=== PATIENT | male | born 1960 | race Caucasian/White ===

== ENCOUNTER 2018-10-04 11:55 | Day surgery (SDC) | payer MEDICARE, OTHER ==
[2018-10-04 12:07] VITALS: BP 142/66
[2018-10-04] MEDS ORDERED: POTA8TAB8 PO (12:34)
[2018-10-04] MEDS ORDERED: CARV-50 PO (12:36)
[2018-10-04] MEDS ORDERED: FURO40TA4 PO (12:36)
[2018-10-04] MEDS ORDERED: METF-436 PO (12:38)
[2018-10-04] MEDS ORDERED: AMLO5TAB PO (12:41)
[2018-10-04] MEDS ORDERED: PANT-47 PO (12:41)
[2018-10-04] MEDS ORDERED: SAXA5TAB PO (12:44)
[2018-10-04] MEDS ORDERED: AMYL1CAP57 PO (12:45)
[2018-10-04] MEDS ORDERED: AMYL1CAP56 PO (12:45)
[2018-10-04] MEDS ORDERED: LOSA25TA96 PO (12:46)
[2018-10-04] MEDS ORDERED: GLIM4TAB79 PO (12:49)
[2018-10-04] MEDS ORDERED: MV-M1TAB19 PO (12:50)
[2018-10-04] MEDS ORDERED: IRON18TA PO (12:51)
[2018-10-04] MEDS ORDERED: MELA3TAB PO (12:52)
[2018-10-04] MEDS ORDERED: GUAI-44 PO (12:53)
[2018-10-04] MEDS ORDERED: WARF-55 PO (12:57)
[2018-10-04] MEDS ORDERED: WARF6TAB49 PO (12:57)
[2018-10-04] MEDS ORDERED: MIDAZolam 5mg/5ml vial ONE (13:03)
[2018-10-04] MEDS ORDERED: fentaNYL/PF 50MCG/1 ML 2ML syringe ONE (13:03)
[2018-10-04] MEDS ORDERED: LIDOcaine Viscous 15ml cup ONE (13:04)
[2018-10-04 14:29] VITALS: BP 128/64
[2018-10-04 14:39] VITALS: BP 154/90
[2018-10-04 14:49] VITALS: BP 165/65
== END 2018-10-04 15:00 | disposition home or self-care (01) ==
LOC: GI LAB 11:55
PROVIDERS: ATTEND Internal Medicine Gastroenterology
DX: K31.7 Polyp of stomach and duodenum (principal)
CPT/HCPCS: 43251; 99152; C1773; J2250; J3010; J7030; 88305; 99153; A4620; J7040

== ENCOUNTER 2018-11-02 14:40 | Emergency (ER) | payer MEDICARE, OTHER ==
[~2018-11-02] VITALS: Ht 182.9 cm; Wt 145.0 kg
[~2018-11-02 14:40] MED LIST: AMLO5TAB PO; AMYL1CAP56 PO; AMYL1CAP57 PO; CARV-50 PO; FURO40TA4 PO; GLIM4TAB4 PO; GUAI-44 PO; IRON18TA PO; LOSA25TA96 PO; MELA3TAB64 PO; METF-436 PO; MV-M1TAB19 PO; PANT-47 PO; POTA8TAB8 PO; SAXA5TAB PO; WARF-55 PO; WARF6TAB49 PO
[2018-11-02 16:07] LABS: BASOPHILS # (AUTO) 0.1 X10'3 (0-0.2); BASOPHILS % (AUTO) 1.2 % (0-1); EOSINOPHILS # (AUTO) 1.1 X10'3 (0-0.9); EOSINOPHILS % (AUTO) 9.3 % (0-6); HEMATOCRIT 53.4 % (42.0-52.0); HEMOGLOBIN 17.7 g/dl (14.0-17.9); MEAN CORPUSCULAR HEMOGLOBIN 28.6 PG (27.0-31.0); MEAN CORPUSCULAR HGB CONC 33.1 g/dL (33.0-36.5); MEAN CORPUSCULAR VOLUME 86.1 FL (78-98); MEAN PLATELET VOLUME 10.3 FL (7.4-10.4); MONOCYTES # (AUTO) 1.2 X10'3 (0-0.9); MONOCYTES % (AUTO) 9.9 % (2-12); NEUTROPHILS # (AUTO) 7.3 X10'3 (1.8-7.7); NEUTROPHILS % (AUTO) 62.6 % (42-75); PLATELET COUNT 169 X10'3 (140-440); RED CELL DISTRIBUTION WIDTH 15.6 % (11.5-14.5); WHITE BLOOD COUNT 11.7 X10'3 (4.5-11.0)
[2018-11-02 16:22] LABS: ALANINE AMINOTRANSFERASE 44 U/L (12-78); ALBUMIN 3.6 G/DL (3.4-5.0); ALKALINE PHOSPHATASE 63 IU/L (46-116); ANION GAP 6 (8-16); ASPARTATE AMINO TRANSFERASE 27 U/L (10-37); BILIRUBIN,TOTAL 0.5 MG/DL (0.1-1.0); BLOOD UREA NITROGEN 12 MG/DL (7-18); BUN/CREATININE RATIO 10.4 (5.4-32.0); CALCIUM 8.7 MG/DL (8.5-10.1); CHLORIDE 106 MMOL/L (99-107); CREATININE 1.15 MG/DL (0.60-1.10); GLUCOSE 120 MG/DL (70-104); POTASSIUM 4.1 MMOL/L (3.5-5.1); SODIUM 140 MMOL/L (135-145); TOTAL CARBON DIOXIDE 28.2 MMOL/L (24-32); TOTAL PROTEIN 7.3 G/DL (6.4-8.2); eGFR 65 ML/MIN
[2018-11-02 16:29] LABS: MAGNESIUM 1.8 MG/DL (1.5-2.4)
[2018-11-02 17:59] VITALS: BP 136/77
== END 2018-11-02 18:02 | disposition home or self-care (01) ==
LOC: ER 14:41
DX: I73.9 Peripheral vascular disease, unspecified (principal); R06.02 Shortness of breath; E11.42 Type 2 diabetes mellitus with diabetic polyneuropathy; I50.9 Heart failure, unspecified; F12.90 Cannabis use, unspecified, uncomplicated; Z98.61 Coronary angioplasty status; Z95.0 Presence of cardiac pacemaker; Z87.891 Personal history of nicotine dependence; Z79.84 Long term (current) use of oral hypoglycemic drugs; Z79.01 Long term (current) use of anticoagulants; Z79.899 Other long term (current) drug therapy
CPT/HCPCS: 36415; 71045; 80053; 83735; 83880; 84484; 85025; 93005; 93925; 99284

== ENCOUNTER 2020-08-16 09:13 | Day surgery (SDC) | payer MEDICARE, OTHER ==
[~2020-08-16] VITALS: Ht 180.3 cm; Wt 144.1 kg
[~2020-08-16 09:13] MED LIST changes: -GLIM4TAB4 PO; +GLIM4TAB7 PO; +MELA3TAB39 PO; -MELA3TAB64 PO
[2020-08-16 09:30] VITALS: BP 158/82
[2020-08-16] MEDS ORDERED: fentaNYL/PF 50MCG/1 ML 2ML syringe ONE (09:42)
[2020-08-16] MEDS ORDERED: MIDAZolam 1 MG/ML 5ML VIAL ONE (09:43)
[2020-08-16] MEDS ORDERED: LIDOcaine Viscous 15ml cup ONE (09:43)
[2020-08-16] MEDS ORDERED: DULA3PEN (10:01)
[2020-08-16] MEDS ORDERED: ERGO400C PO (10:01)
[2020-08-16] MEDS ORDERED: CLOP75TA33 PO (10:02)
[2020-08-16] MEDS ORDERED: LOSA25TA41 PO (10:03)
[2020-08-16] MEDS ORDERED: CARV25TA2 PO (10:03)
[2020-08-16] MEDS ORDERED: ATOR20TA66 PO (10:04)
[2020-08-16 11:15] VITALS: BP 154/93
[2020-08-16 11:25] VITALS: BP 148/88
[2020-08-16 11:35] VITALS: BP 144/84
== END 2020-08-16 12:10 | disposition home or self-care (01) ==
LOC: GI LAB 09:13
PROVIDERS: ATTEND Internal Medicine Gastroenterology
DX: K92.1 Melena (principal); R93.3 Abnormal findings on diagnostic imaging of other parts of digestive tract; R10.9 Unspecified abdominal pain; K63.89 Other specified diseases of intestine; K56.2 Volvulus; K57.30 Diverticulosis of large intestine without perforation or abscess without bleeding; K64.8 Other hemorrhoids; D12.3 Benign neoplasm of transverse colon; D12.4 Benign neoplasm of descending colon; K29.50 Unspecified chronic gastritis without bleeding; K31.7 Polyp of stomach and duodenum; I10 Essential (primary) hypertension; E11.9 Type 2 diabetes mellitus without complications; E66.9 Obesity, unspecified; Z68.41 Body mass index [BMI] 40.0-44.9, adult; Z87.891 Personal history of nicotine dependence
CPT/HCPCS: 43239; 43251; 45380; 45385; 99153; C1773; G0500; J2250; J3010; J7040; 88305; 88342; 99152; A4620

== ENCOUNTER 2020-09-07 07:49 | Emergency (ER) | payer MEDICARE, OTHER ==
[~2020-09-07] VITALS: Ht 180.3 cm; Wt 140.0 kg
[~2020-09-07 07:49] MED LIST changes: -AMLO5TAB PO; -AMYL1CAP56 PO; -AMYL1CAP57 PO; +ATOR20TA66 PO; -CARV-50 PO; +CARV25TA2 PO; +CLOP75TA33 PO; +DULA3PEN; +ERGO400C PO; -GLIM4TAB7 PO; -GUAI-44 PO; -IRON18TA PO; +LOSA25TA41 PO; -MELA3TAB39 PO; -METF-436 PO; -MV-M1TAB19 PO; -POTA8TAB8 PO
[2020-09-07 07:53] VITALS: BP 156/96
== END 2020-09-07 09:51 | disposition home or self-care (01) ==
LOC: ER 07:50
DX: I83.892 Varicose veins of left lower extremity with other complications (principal); I50.9 Heart failure, unspecified; E11.9 Type 2 diabetes mellitus without complications; F12.10 Cannabis abuse, uncomplicated; Z79.899 Other long term (current) drug therapy
CPT/HCPCS: 99282

== ENCOUNTER 2021-08-19 11:52 | Emergency (ER) | payer MEDICARE, OTHER ==
[~2021-08-19] VITALS: Ht 180.3 cm; Wt 140.0 kg
[2021-08-19 12:25] LABS: BASOPHILS # (AUTO) 0.1 X10'3 (0-0.2); EOSINOPHILS # (AUTO) 1.1 X10'3 (0-0.9); EOSINOPHILS % (AUTO) 11.5 % (0-6); HEMATOCRIT 44.9 % (42.0-52.0); HEMOGLOBIN 14.7 g/dl (14.0-17.9); LYMPHOCYTES # (AUTO) 2.1 X10'3 (1.1-4.8); LYMPHOCYTES % (AUTO) 21.1 % (21-51); MEAN CORPUSCULAR HEMOGLOBIN 27.1 PG (27.0-31.0); MEAN CORPUSCULAR HGB CONC 32.8 g/dL (33.0-36.5); MEAN CORPUSCULAR VOLUME 82.7 FL (78-98); MEAN PLATELET VOLUME 8.5 FL (7.4-10.4); MONOCYTES # (AUTO) 0.7 X10'3 (0-0.9); MONOCYTES % (AUTO) 7.5 % (2-12); NEUTROPHILS # (AUTO) 5.9 X10'3 (1.8-7.7); NEUTROPHILS % (AUTO) 58.9 % (42-75); PLATELET COUNT 202 X10'3 (140-440); RED BLOOD COUNT 5.42 X10'6 (4.70-6.10); RED CELL DISTRIBUTION WIDTH 14.7 % (11.5-14.5); WHITE BLOOD COUNT 9.9 X10'3 (4.5-11.0)
[2021-08-19 12:39] LABS: ALANINE AMINOTRANSFERASE 35 U/L (12-78); ALBUMIN 3.5 G/DL (3.4-5.0); ALBUMIN/GLOBULIN RATIO 0.9 (1.1-1.5); ALKALINE PHOSPHATASE 79 IU/L (46-116); ANION GAP 6 (8-16); ASPARTATE AMINO TRANSFERASE 21 U/L (10-37); BILIRUBIN,TOTAL 0.7 MG/DL (0.1-1.0); BLOOD UREA NITROGEN 12 MG/DL (7-18); BUN/CREATININE RATIO 10.7 (5.4-32.0); CALCIUM 8.7 MG/DL (8.5-10.1); CHLORIDE 104 MMOL/L (99-107); CREATININE 1.12 MG/DL (0.60-1.10); GLUCOSE 176 MG/DL (70-104); POTASSIUM 4.1 MMOL/L (3.5-5.1); SODIUM 138 MMOL/L (135-145); TOTAL PROTEIN 7.2 G/DL (6.4-8.2); eGFR 67 ML/MIN
[2021-08-19 12:47] LABS: LIPASE 65 U/L (73-393)
[2021-08-19 13:37] LABS: D-DIMER < 0.19 MG/L FEU (0-0.50)
[2021-08-19] MEDS ORDERED: furosemide 20MG tablet PO ONE (14:30)
[2021-08-19] MEDS ORDERED: cloNIDine 0.1 mg tablet PO ONE (14:30)
[2021-08-19 15:05] VITALS: BP 151/91
== END 2021-08-19 15:17 | disposition home or self-care (01) ==
LOC: ER 11:53
DX: I10 Essential (primary) hypertension (principal); R06.02 Shortness of breath; R07.89 Other chest pain; R22.42 Localized swelling, mass and lump, left lower limb; I25.2 Old myocardial infarction; I48.91 Unspecified atrial fibrillation; E11.43 Type 2 diabetes mellitus with diabetic autonomic (poly)neuropathy; I50.9 Heart failure, unspecified; F12.90 Cannabis use, unspecified, uncomplicated; Z95.5 Presence of coronary angioplasty implant and graft; Z95.0 Presence of cardiac pacemaker; Z88.8 Allergy status to other drugs, medicaments and biological substances; Z79.899 Other long term (current) drug therapy; Z85.51 Personal history of malignant neoplasm of bladder; Z79.01 Long term (current) use of anticoagulants
CPT/HCPCS: 36415; 71045; 80053; 83690; 83880; 84484; 85025; 85379; 85610; 93005; 93971; 99285

== ENCOUNTER 2021-12-06 06:29 | Day surgery (SDC) | payer MEDICARE, OTHER ==
[~2021-12-06] VITALS: Ht 180.3 cm; Wt 133.5 kg
[2021-12-06] VITALS (10 sets, daily range): BP systolic 101–135; BP diastolic 54–72
[2021-12-06] MEDS ORDERED: ceFAZolin inj. 3,000 MG in normal saline 100ml IV soln 100 ML IV ONE (06:50)
[2021-12-06] MEDS ORDERED: vancomycin 1,500 MG in NS 300ml IV soln IV ONE (06:51)
[2021-12-06 07:25] LABS: ALBUMIN 3.8 G/DL (3.4-5.0); ANION GAP 12 (8-16); BLOOD UREA NITROGEN 22 MG/DL (7-18); BUN/CREATININE RATIO 19.3 (5.4-32.0); CALCIUM 9.2 MG/DL (8.5-10.1); CHLORIDE 104 MMOL/L (99-107); CREATININE 1.14 MG/DL (0.60-1.10); GLUCOSE 195 MG/DL (70-104); MAGNESIUM 1.9 MG/DL (1.5-2.4); SODIUM 140 MMOL/L (135-145); TOTAL CARBON DIOXIDE 24.2 MMOL/L (24-32); eGFR 65 ML/MIN
[2021-12-06 07:27] LABS: BASOPHILS # (AUTO) 0.1 X10'3 (0-0.2); BASOPHILS % (AUTO) 0.9 % (0-1); EOSINOPHILS # (AUTO) 1.3 X10'3 (0-0.9); HEMATOCRIT 45.3 % (42.0-52.0); HEMOGLOBIN 15.3 g/dl (14.0-17.9); LYMPHOCYTES # (AUTO) 2.3 X10'3 (1.1-4.8); LYMPHOCYTES % (AUTO) 19.3 % (21-51); MEAN CORPUSCULAR HEMOGLOBIN 28.6 PG (27.0-31.0); MEAN CORPUSCULAR HGB CONC 33.7 g/dL (33.0-36.5); MEAN CORPUSCULAR VOLUME 84.9 FL (78-98); MEAN PLATELET VOLUME 9.3 FL (7.4-10.4); MONOCYTES # (AUTO) 1.1 X10'3 (0-0.9); MONOCYTES % (AUTO) 8.9 % (2-12); NEUTROPHILS # (AUTO) 7.3 X10'3 (1.8-7.7); NEUTROPHILS % (AUTO) 59.9 % (42-75); PLATELET COUNT 186 X10'3 (140-440); RED BLOOD COUNT 5.34 X10'6 (4.70-6.10); RED CELL DISTRIBUTION WIDTH 15.2 % (11.5-14.5); WHITE BLOOD COUNT 12.1 X10'3 (4.5-11.0)
[2021-12-06] MEDS ORDERED: CHOL500050 PO (07:47)
[2021-12-06] MEDS ORDERED: FURO-150 PO (07:49)
[2021-12-06] MEDS ORDERED: CBD GUMMY PO (07:52)
[2021-12-06] MEDS ORDERED: POTA8CAP20 PO (07:53)
[2021-12-06] MEDS ORDERED: INSU100I29 SQ (07:53)
[2021-12-06] MEDS ORDERED: SPIR25TA5 PO (07:55)
[2021-12-06] MEDS ORDERED: SACU1TAB7 PO (07:55)
[2021-12-06] MEDS ORDERED: GLIM4TAB7 PO (07:59)
[2021-12-06] MEDS ORDERED: midazolam 1 mg/ML 2ml injection ONE ×6 (08:48→11:20)
[2021-12-06] MEDS ORDERED: fentaNYL/PF 50MCG/1 ML 2ML syringe ONE (08:48)
[2021-12-06] MEDS ORDERED: LIDOCAINE 2% w/EPI 1:100:000 30mL injection MDV**cath lab 1 only ONE (08:49)
[2021-12-06] MEDS ORDERED: iohexol 350MG/ML 100ml bottle IV ONE ×3 (08:49→10:26)
[2021-12-06] MEDS ORDERED: vancomycin 1,000mg inj ONE (08:49)
[2021-12-06] MEDS ORDERED: normal saline 500ml IV soln 500 ML IV SCH (12:20)
[2021-12-07] MEDS ORDERED: CEPH-585 PO (13:01)
== END 2021-12-06 14:23 | disposition home or self-care (01) ==
LOC: SSTAY O 06:29
PROVIDERS: ATTEND Internal Medicine Cardiovascular Disease
DX: Z45.02 Encounter for adjustment and management of automatic implantable cardiac defibrillator (principal); I25.5 Ischemic cardiomyopathy; Z79.899 Other long term (current) drug therapy; I48.20 Chronic atrial fibrillation, unspecified; I25.2 Old myocardial infarction; I73.9 Peripheral vascular disease, unspecified; E78.5 Hyperlipidemia, unspecified; I10 Essential (primary) hypertension; E11.9 Type 2 diabetes mellitus without complications; G47.30 Sleep apnea, unspecified; Z98.890 Other specified postprocedural states; I50.22 Chronic systolic (congestive) heart failure; I42.0 Dilated cardiomyopathy; I11.0 Hypertensive heart disease with heart failure
CPT/HCPCS: 33225; 33230; 33233; 36415; 71045; 71046; 80048; 82948; 83735; 85025; 85610; 93005; 99152; 99153; C1751; C1769; C1882; C1894; J2250; J3010; J3370; J3490; J7030; J7040; Q9967; 33216; 33229; 33264; A4565; A4620; A6258

== ENCOUNTER 2021-12-07 09:42 | Emergency (ER) | payer MEDICARE, OTHER ==
[~2021-12-07] VITALS: Ht 180.3 cm; Wt 133.6 kg
[~2021-12-07 09:42] MED LIST changes: +CBD GUMMY PO; +CHOL500050 PO; -DULA3PEN; +FURO-150 PO; -FURO40TA4 PO; +GLIM4TAB7 PO; +INSU100I29 SQ; -LOSA25TA41 PO; -LOSA25TA96 PO; +POTA8CAP20 PO; +SACU1TAB7 PO; -SAXA5TAB PO; +SPIR25TA5 PO; -WARF-55 PO
[2021-12-07 11:19] VITALS: BP 105/64
[2021-12-07] MEDS ORDERED: CEPH-585 PO (13:01)
== END 2021-12-07 13:22 | disposition home or self-care (01) ==
LOC: ER 09:43
DX: I97.620 Postprocedural hemorrhage of a circulatory system organ or structure following other procedure (principal); E11.42 Type 2 diabetes mellitus with diabetic polyneuropathy; I50.9 Heart failure, unspecified; F12.90 Cannabis use, unspecified, uncomplicated; Z95.0 Presence of cardiac pacemaker; Z98.890 Other specified postprocedural states; Z88.8 Allergy status to other drugs, medicaments and biological substances; Z79.2 Long term (current) use of antibiotics; Z79.4 Long term (current) use of insulin; Z79.899 Other long term (current) drug therapy
CPT/HCPCS: 99283; A6258; A6449

== ENCOUNTER 2021-12-27 06:31 | Day surgery (SDC) | payer MEDICARE, OTHER ==
[~2021-12-27] VITALS: Ht 180.3 cm; Wt 136.7 kg
[2021-12-27] VITALS (7 sets, daily range): BP systolic 116–141; BP diastolic 75–89
[2021-12-27] MEDS ORDERED: vancomycin 1,500 MG in NS 300ml IV soln IV ONE (06:59)
[2021-12-27] MEDS ORDERED: ceFAZolin inj. 3,000 MG in normal saline 100ml IV soln 100 ML IV ONE (06:59)
[2021-12-27] MEDS ORDERED: WARF-55 PO (07:27)
[2021-12-27] MEDS ORDERED: fentaNYL/PF 50MCG/1 ML 2ML syringe ONE (08:45)
[2021-12-27] MEDS ORDERED: midazolam 1 mg/ML 2ml injection ONE ×3 (08:45→10:26)
[2021-12-27] MEDS ORDERED: LIDOCAINE 2% w/EPI 1:100:000 30mL injection MDV**cath lab 1 only ONE (08:46)
[2021-12-27] MEDS ORDERED: iohexol 350MG/ML 100ml bottle IV ONE ×2 (08:46→10:07)
[2021-12-27] MEDS ORDERED: vancomycin 1,000mg inj ONE (08:46)
[2021-12-27 09:05] LABS: BASOPHILS # (AUTO) 0.1 X10'3 (0-0.2); BASOPHILS % (AUTO) 1.1 % (0-1); EOSINOPHILS # (AUTO) 1.3 X10'3 (0-0.9); EOSINOPHILS % (AUTO) 11.5 % (0-6); HEMATOCRIT 45.6 % (42.0-52.0); HEMOGLOBIN 15.5 g/dl (14.0-17.9); LYMPHOCYTES # (AUTO) 2.4 X10'3 (1.1-4.8); LYMPHOCYTES % (AUTO) 21.8 % (21-51); MEAN CORPUSCULAR HEMOGLOBIN 29.5 PG (27.0-31.0); MEAN CORPUSCULAR HGB CONC 34.1 g/dL (33.0-36.5); MEAN CORPUSCULAR VOLUME 86.5 FL (78-98); MEAN PLATELET VOLUME 9.3 FL (7.4-10.4); MONOCYTES % (AUTO) 9.1 % (2-12); NEUTROPHILS # (AUTO) 6.2 X10'3 (1.8-7.7); NEUTROPHILS % (AUTO) 56.5 % (42-75); PLATELET COUNT 185 X10'3 (140-440); RED BLOOD COUNT 5.27 X10'6 (4.70-6.10)
[2021-12-27 09:53] LABS: ALBUMIN 3.6 G/DL (3.4-5.0); ANION GAP 10 (8-16); BLOOD UREA NITROGEN 16 MG/DL (7-18); BUN/CREATININE RATIO 14.2 (5.4-32.0); CALCIUM 9.1 MG/DL (8.5-10.1); CHLORIDE 103 MMOL/L (99-107); CREATININE 1.13 MG/DL (0.60-1.10); GLUCOSE 167 MG/DL (70-104); POTASSIUM 4.1 MMOL/L (3.5-5.1); SODIUM 139 MMOL/L (135-145); eGFR 66 ML/MIN
== END 2021-12-27 14:00 | disposition home or self-care (01) ==
LOC: SSTAY O 06:31
PROVIDERS: ATTEND Internal Medicine Cardiovascular Disease
DX: Z45.02 Encounter for adjustment and management of automatic implantable cardiac defibrillator (principal); I42.8 Other cardiomyopathies; I25.2 Old myocardial infarction; Z79.899 Other long term (current) drug therapy; Z98.890 Other specified postprocedural states
CPT/HCPCS: 33216; 36415; 80048; 82948; 83735; 85025; 85610; 93005; 93641; 99152; 99153; C1769; C1894; J2250; J3010; J3370; J3490; J7030; J7040; Q9967; A4620; A6258

== ENCOUNTER 2024-10-24 08:51 | Outpatient (CLI) | payer MEDICARE, OTHER ==
[~2024-10-24 08:51] MED LIST changes: -CHOL500050 PO; +WARF-55 PO
--- NOTE | 2024-10-24 10:40 | RADIOLOGY REPORT ---
EXAM: CT CT CERVICAL SPINE HISTORY: RADICULOPATHY, CERVICAL REGION, CHRONIC PAIN SYNDROME COMPARISON: None CTDIvol 25 mGy, DLP 632.5 mGy*cm. TECHNIQUE: Multiple axial CT images of the spine were obtained using bone algorithm. Axial and yeager l reformatting was done. Bone and soft tissue windows were reviewed. FINDINGS: No evidence of definite acute fracture, spinal dislocation, or significant appearing acute subluxatio n is seen. Partially imaged lipoma in the region of the right medial shoulder/ upper scapula. This measures appr oximately 7.9 cm. Multilevel degenerative changes of the spine. IMPRESSION: No definite CT evidence of acute fracture or dislocation of the bony cervical spine. Partially imaged lipoma in the region of the right medial shoulder/ upper scapula. This measures appr oximately 7.9 cm. Multilevel degenerative changes of the spine.
== END 2024-10-24 23:59 | disposition home or self-care (01) ==
LOC: RAD 08:51
PROVIDERS: ATTEND Nurse Practitioner Adult Health
DX: M47.22 Other spondylosis with radiculopathy, cervical region (principal); G89.4 Chronic pain syndrome; M54.50 Low back pain, unspecified; M54.2 Cervicalgia; D17.9 Benign lipomatous neoplasm, unspecified
CPT/HCPCS: 72125